=== PATIENT | male | born 1965 | race African-American/Black ===

== ENCOUNTER 2023-08-14 10:41 | Inpatient (IN) | payer BC, MEDICAID ==
[~2023-08-14] VITALS: Ht 154.9 cm; Wt 100.2 kg
[~2023-08-14 10:41] MED LIST: AMOX875T4 PO; IBUP-1455 PO
[2023-08-14 11:16] LABS: Basophils # (auto) 0 10 ^3/uL (0-0.2); Basophils % (auto) 0.9 % (0.0-2.0); Eosinophils # (auto) 0.1 10 ^3/uL (0-0.8); Eosinophils % (auto) 2.3 % (0.0-7.0); Hematocrit 45.3 % (41.0-53.0); Hemoglobin 15.4 g/dL (13.5-17.5); Lymphocytes # (auto) 1.4 10 ^3/uL (0.4-5.4); Lymphocytes % (auto) 27.3 % (10.0-50.0); Mean Corpuscular Hemoglobin 31.5 pg (28.0-32.0); Mean Corpuscular Volume 92.9 fL (80.0-100.0); Monocytes # (auto) 0.5 10 ^3/uL (0-1.3); Monocytes % (auto) 10.3 % (0.0-12.0); Neutrophils % (auto) 59.2 % (37.0-80.0); Nucleated Red Blood Cells % 0.1 %; Red Blood Cells 4.88 10^6/uL (4.5-5.90); Red Cell Distribution Width 13.7 % (11.8-14.3)
[2023-08-14 11:46] LABS: Alanine Aminotransferase 23 U/L (7-40); Albumin 4.2 g/dL (3.2-4.8); Alkaline Phosphatase 74 U/L (46-116); Anion Gap 3 (5-15); Aspartate Aminotransferase 15 U/L (13-40); BUN/Creatinine Ratio 18.4 (10.0-20.0); Bilirubin, Total 0.5 mg/dL (0.2-1.0); Blood Urea Nitrogen 21 mg/dL (9-23); Calcium 9.9 mg/dL (8.5-10.1); Carbon Dioxide 23 mmol/L (20-30); Chloride 116 mmol/L (98-107); Glucose 94 mg/dL (74-106); Potassium 4.3 mmol/L (3.5-5.1); Sodium 142 mmol/L (136-145)
[2023-08-14 11:47] LABS: Total Protein 6.7 g/dL (5.7-8.2)
[2023-08-14] MEDS: ASPirin 325 MG TAB PO ONE (13:20)
[2023-08-14] MEDS: NITROGLYCERIN 0.4 MG SL TAB SL ONE (13:21)
[2023-08-14] MEDS ORDERED: ALPR1TAB2 PO (16:10)
[2023-08-14] MEDS ORDERED: LISI20TA56 PO (16:10)
[2023-08-14] MEDS ORDERED: AMLO1TAB23 PO (16:10)
[2023-08-14] MEDS ORDERED: ONDANSETRON HCL 4 MG/2 ML VIAL IV PRN (16:15)
[2023-08-14] MEDS ORDERED: NITROGLYCERIN 0.4 MG SL TAB SL PRN (16:15)
[2023-08-14] MEDS ORDERED: HYDROcodone-ACET 5/325MG TAB PO PRN (16:15)
[2023-08-14] MEDS ORDERED: MORPHINE SULFATE INJ 2 MG/ml SYRG IV PRN ×2 (16:15)
[2023-08-14] MEDS ORDERED: ACETAMINOPHEN 325 MG TAB PO PRN (16:15)
[2023-08-14] MEDS ORDERED: DOCUSATE SOD 100 MG CAP PO PRN (16:15)
[2023-08-14] MEDS: ALPRAZolam 0.5 MG TAB PO PRN (22:16)
[2023-08-14] MEDS: ATORVASTATIN 20 MG TAB PO SCH (22:16)
[2023-08-14 22:30] VITALS: BP 129/77; PULSE 62; RESP 18; TEMP 98.4; O2SAT 97
[2023-08-14 23:30] VITALS: PULSE 62; RESP 18; O2SAT 97
[2023-08-14 23:31] VITALS: BP 129/77; PULSE 62; RESP 18; TEMP 98.4; O2SAT 97
[2023-08-15 01:00] VITALS: BP 115/66; PULSE 61; RESP 18; TEMP 98.4; O2SAT 97
[2023-08-15 05:00] VITALS: BP 123/69; PULSE 60; RESP 18; TEMP 98.4; O2SAT 96
[2023-08-15 05:55] LABS: Basophils # (auto) 0 10 ^3/uL (0-0.2); Basophils % (auto) 0.9 % (0.0-2.0); Eosinophils # (auto) 0.2 10 ^3/uL (0-0.8); Eosinophils % (auto) 4.7 % (0.0-7.0); Hematocrit 43.2 % (41.0-53.0); Hemoglobin 14.3 g/dL (13.5-17.5); Lymphocytes # (auto) 1.9 10 ^3/uL (0.4-5.4); Lymphocytes % (auto) 35.2 % (10.0-50.0); Mean Corpuscular Hemoglobin 30.9 pg (28.0-32.0); Mean Corpuscular Hgb Conc. 33.1 g/dL (32.0-36.0); Mean Corpuscular Volume 93.2 fL (80.0-100.0); Monocytes # (auto) 0.6 10 ^3/uL (0-1.3); Monocytes % (auto) 12.1 % (0.0-12.0); Neutrophils # (auto) 2.5 10 ^3/uL (1.6-8.6); Neutrophils % (auto) 47.1 % (37.0-80.0); Nucleated Red Blood Cells % 0.1 %; Red Blood Cells 4.63 10^6/uL (4.5-5.90); White Blood Cell 5.3 10^3/uL (4.4-10.8)
[2023-08-15 06:18] LABS: Alanine Aminotransferase 15 U/L (7-40); Alkaline Phosphatase 66 U/L (46-116); Anion Gap 4 (5-15); BUN/Creatinine Ratio 15.3 (10.0-20.0); Blood Urea Nitrogen 15 mg/dL (9-23); Calcium 9.2 mg/dL (8.5-10.1); Carbon Dioxide 24 mmol/L (20-30); Chloride 114 mmol/L (98-107); Glucose 102 mg/dL (74-106); LDL Cholesterol 123 mg/dL (< 100); Potassium 3.8 mmol/L (3.5-5.1); Sodium 142 mmol/L (136-145); Triglycerides 100 mg/dL (< 150)
[2023-08-15 06:19] LABS: Albumin 3.8 g/dL (3.2-4.8); Aspartate Aminotransferase 11 U/L (13-40); Cholesterol 169 mg/dL (< 200); HDL Cholesterol 31 mg/dL (40-59)
[2023-08-15 06:20] LABS: Bilirubin, Total 0.4 mg/dL (0.2-1.0); Total Protein 6.3 g/dL (5.7-8.2)
[2023-08-15 07:59] VITALS: BP 131/90; PULSE 69; RESP 18; TEMP 97.9; O2SAT 95
[2023-08-15 08:00] VITALS: PULSE 61; PULSE 69; RESP 18; O2SAT 95
[2023-08-15] MEDS: ASPirin-EC 81 mg tab PO SCH (10:02)
[2023-08-15] MEDS: amLODIPine BESYLATE 5 MG TAB PO SCH (10:02)
[2023-08-15] MEDS: LISINOPRIL 20 MG TAB PO SCH (10:02)
[2023-08-15] MEDS: PANTOPRAZOLE 40 MG TAB PO ONE (10:44)
[2023-08-15] MEDS: NICOTINE 21MG/24 HR TOPICAL PATCH TD ONE (11:28)
[2023-08-15 11:31] VITALS: BP 114/74; PULSE 73; RESP 17; TEMP 97.2; O2SAT 95
[2023-08-15 12:27] LABS: Erythrocyte Sedimentation Rate 2 mm/hr (0-20)
[2023-08-15] MEDS ORDERED: ASPI-543 PO (14:33)
[2023-08-15] MEDS ORDERED: ATOR20TA50 PO (14:33)
[2023-08-15] MEDS ORDERED: NIC21P TD (14:33)
[2023-08-15] MEDS ORDERED: PANT40T PO (14:33)
[2023-08-15 15:25] VITALS: BP 114/74; PULSE 73; RESP 18; TEMP 97.2; O2SAT 95
[2023-08-16] MEDS ORDERED: PANTOPRAZOLE 40 MG TAB PO SCH (06:00)
[2023-08-16] MEDS ORDERED: NICOTINE 21MG/24 HR TOPICAL PATCH TD SCH (10:00)
== END 2023-08-15 16:25 | disposition home or self-care (01) | DRG 313 ==
LOC: ER 10:41 → TELE 16:10 → TELE-E-ADS 21:30
PROVIDERS: ADMIT Internal Medicine Pulmonary Disease; ATTEND Emergency Medicine
DX: R07.89 Other chest pain (principal); Z68.41 Body mass index [BMI] 40.0-44.9, adult; K21.9 Gastro-esophageal reflux disease without esophagitis; E66.9 Obesity, unspecified; E78.5 Hyperlipidemia, unspecified; F17.210 Nicotine dependence, cigarettes, uncomplicated; F41.9 Anxiety disorder, unspecified; I10 Essential (primary) hypertension; Z79.1 Long term (current) use of non-steroidal anti-inflammatories (NSAID); Z79.899 Other long term (current) drug therapy; Z82.49 Family history of ischemic heart disease and other diseases of the circulatory system; Z71.6 Tobacco abuse counseling
CPT/HCPCS: 36415; 71045; 80053; 80061; 83036; 83735; 83880; 84443; 84484; 85025; 85652; 86141; 93005; 93306; 96374; G0378

== ENCOUNTER 2023-10-23 06:17 | Inpatient (IN) | payer BC ==
[~2023-10-23] VITALS: Ht 180.3 cm; Wt 89.8 kg
[~2023-10-23 06:17] MED LIST changes: +ALPR1TAB2 PO; +AMLO1TAB23 PO; -AMOX875T4 PO; +ASPI-543 PO; +ATOR20TA50 PO; -IBUP-1455 PO; +LISI20TA56 PO; +NIC21P TD; +PANT40T PO
[2023-10-23 06:50] VITALS: PULSE 67; RESP 15; O2SAT 95
[2023-10-23] MEDS: ONDANSETRON HCL 4 MG/2 ML VIAL IV ONE (06:52)
[2023-10-23] MEDS: HYDROmorphone HCL 2 MG/ML VL/or syr IV ONE ×2 (06:52→08:07)
[2023-10-23] MEDS: PANTOPRAZOLE 40 MG/10 ML VIAL INJ IV ONE (06:52)
[2023-10-23] MEDS: SODIUM CHLORIDE 0.9% 1,000 ML IVB ONE (06:53)
[2023-10-23 07:20] LABS: Basophils # (auto) 0 10 ^3/uL (0-0.2); Basophils % (auto) 0.7 % (0.0-2.0); Eosinophils # (auto) 0.1 10 ^3/uL (0-0.8); Eosinophils % (auto) 1.7 % (0.0-7.0); Hematocrit 43.2 % (41.0-53.0); Hemoglobin 14.8 g/dL (13.5-17.5); Lymphocytes # (auto) 1.1 10 ^3/uL (0.4-5.4); Lymphocytes % (auto) 17.6 % (10.0-50.0); Mean Corpuscular Hemoglobin 31.6 pg (28.0-32.0); Mean Corpuscular Hgb Conc. 34.3 g/dL (32.0-36.0); Monocytes # (auto) 0.8 10 ^3/uL (0-1.3); Monocytes % (auto) 13.1 % (0.0-12.0); Neutrophils # (auto) 4.3 10 ^3/uL (1.6-8.6); Neutrophils % (auto) 66.9 % (37.0-80.0); Nucleated Red Blood Cells % 0.1 %; Platelet Count (auto) 215 10^3/uL (140-450); Red Cell Distribution Width 13.8 % (11.8-14.3); White Blood Cell 6.4 10^3/uL (4.4-10.8)
[2023-10-23 07:33] LABS: Alanine Aminotransferase 63 U/L (7-40); Albumin 4.3 g/dL (3.2-4.8); Alkaline Phosphatase 83 U/L (46-116); Anion Gap 6 (5-15); Aspartate Aminotransferase 103 U/L (13-40); BUN/Creatinine Ratio 16.1 (10.0-20.0); Blood Urea Nitrogen 18 mg/dL (9-23); Carbon Dioxide 28 mmol/L (20-30); Chloride 112 mmol/L (98-107); Glucose 116 mg/dL (74-106); Lipase 67 U/L (12-53); Potassium 3.5 mmol/L (3.5-5.1); Sodium 146 mmol/L (136-145)
[2023-10-23 07:34] LABS: Bilirubin, Total 0.8 mg/dL (0.2-1.0); Total Protein 6.9 g/dL (5.7-8.2)
[2023-10-23 07:40] VITALS: PULSE 69; RESP 14; O2SAT 94
[2023-10-23] MEDS ORDERED: DOCUSATE SOD 100 MG CAP PO PRN (14:30)
[2023-10-23] MEDS ORDERED: hydrALAZINE HCL 20 MG/ML VL IV PRN (14:30)
[2023-10-23] MEDS ORDERED: IBUPROFEN 600 MG TAB PO PRN (14:30)
[2023-10-23] MEDS ORDERED: ONDANSETRON HCL 4 MG/2 ML VIAL IV PRN (14:30)
[2023-10-23] MEDS ORDERED: NITROGLYCERIN 0.4 MG SL TAB SL PRN (15:15)
[2023-10-23] MEDS ORDERED: MORPHINE SULFATE INJ 2 MG/ml SYRG IV PRN (15:15)
[2023-10-23 16:21] LABS: Urine Bacteria None Seen /hpf (None Seen)
[2023-10-23 16:29] LABS: Urine Blood Negative /uL (Negative); Urine Clarity Clear (Clear); Urine Color Light-Yellow (Yellow); Urine Mucus FEW (None Seen); Urine Protein, UAD Negative (Negative); Urine Specific Gravity 1.022 (1.001-1.035); Urine Urobilinogen Normal (Negative); Urine WBC <1 /hpf (0 - 3); Urine pH 6.5 (5.0-9.0)
[2023-10-23 16:51] LABS: Amphetamine Screen, Urine Neg (NEGATIVE); Barbiturate Scree,Urine Neg (NEGATIVE); Benzodiazephine Screen, Urine Neg (NEGATIVE); Cocaine Screen, Urine Neg (NEGATIVE); Opiate Scree,Urine Neg (NEGATIVE)
[2023-10-23 16:52] LABS: Cannabinoid Screen, Urine Neg (NEGATIVE); Phencyclidine Screen, Urine Neg (NEGATIVE)
[2023-10-23] MEDS: LACTATED RINGER'S 1,000 ML IV SCH (16:56)
[2023-10-23] MEDS: SODIUM CHLOR 0.9% PF (SALINE LOCK) 10ML VIAL/SYR IV SCH (22:11)
[2023-10-23] MEDS: ATORVASTATIN 20 MG TAB PO SCH (22:11)
[2023-10-23 22:24] VITALS: BP 136/81; PULSE 64; RESP 20; TEMP 97.5; O2SAT 97
[2023-10-23] MEDS: MORPHINE SULFATE INJ 2 MG/ml SYRG IV PRN (22:36)
[2023-10-24 01:00] VITALS: BP 123/71; PULSE 66; RESP 16; TEMP 98; O2SAT 95
[2023-10-24] MEDS: HYDROcodone-ACET 5/325MG TAB PO PRN (03:45)
[2023-10-24 05:00] VITALS: BP 123/78; PULSE 60; RESP 20; TEMP 97.6; O2SAT 95
[2023-10-24 06:21] LABS: Basophils # (auto) 0 10 ^3/uL (0-0.2); Basophils % (auto) 0.7 % (0.0-2.0); Eosinophils # (auto) 0.2 10 ^3/uL (0-0.8); Eosinophils % (auto) 2.9 % (0.0-7.0); Hematocrit 41.1 % (41.0-53.0); Hemoglobin 14.1 g/dL (13.5-17.5); Lymphocytes # (auto) 1.8 10 ^3/uL (0.4-5.4); Lymphocytes % (auto) 28.1 % (10.0-50.0); Mean Corpuscular Hemoglobin 31.5 pg (28.0-32.0); Mean Corpuscular Hgb Conc. 34.2 g/dL (32.0-36.0); Mean Corpuscular Volume 92.1 fL (80.0-100.0); Monocytes # (auto) 0.7 10 ^3/uL (0-1.3); Monocytes % (auto) 11.1 % (0.0-12.0); Neutrophils # (auto) 3.7 10 ^3/uL (1.6-8.6); Neutrophils % (auto) 57.2 % (37.0-80.0); Nucleated Red Blood Cells % 0.1 %; Platelet Count (auto) 190 10^3/uL (140-450); Red Blood Cells 4.47 10^6/uL (4.5-5.90); White Blood Cell 6.5 10^3/uL (4.4-10.8)
[2023-10-24 06:32] LABS: Alanine Aminotransferase 49 U/L (7-40); Albumin 3.7 g/dL (3.2-4.8); Alkaline Phosphatase 76 U/L (46-116); Anion Gap 4 (5-15); Aspartate Aminotransferase 31 U/L (13-40); BUN/Creatinine Ratio 14.3 (10.0-20.0); Blood Urea Nitrogen 15 mg/dL (9-23); Calcium 8.5 mg/dL (8.7-10.4); Carbon Dioxide 26 mmol/L (20-30); Chloride 112 mmol/L (98-107); Glucose 105 mg/dL (74-106); Potassium 3.9 mmol/L (3.5-5.1); Sodium 142 mmol/L (136-145)
[2023-10-24 06:33] LABS: Bilirubin, Total 0.4 mg/dL (0.2-1.0); Total Protein 6.1 g/dL (5.7-8.2)
[2023-10-24 08:52] VITALS: BP 140/85; PULSE 56; RESP 16; TEMP 98; O2SAT 96
[2023-10-24] MEDS: PANTOPRAZOLE 40 MG/10 ML VIAL INJ IV SCH (09:45)
[2023-10-24] MEDS: ASPirin 81 mg TAB PO SCH (09:45)
[2023-10-24 14:26] VITALS: BP 133/84; PULSE 75; RESP 16; TEMP 98.6; O2SAT 98
[2023-10-24 16:34] VITALS: BP 135/85; PULSE 78; RESP 16; TEMP 98.5; O2SAT 98
[2023-10-24] MEDS ORDERED: PANT40T PO (17:45)
== END 2023-10-24 18:45 | disposition home or self-care (01) | DRG 392 ==
LOC: EDUNIT# 06:17 → EDBD 06:17 → ER 06:28 → OVERFLOW 15:04 → EAST 22:20
PROVIDERS: ADMIT Internal Medicine Pulmonary Disease; ATTEND Internal Medicine Pulmonary Disease
DX: R10.31 Right lower quadrant pain (principal); J98.11 Atelectasis; E87.0 Hyperosmolality and hypernatremia; E86.0 Dehydration; I10 Essential (primary) hypertension; E78.5 Hyperlipidemia, unspecified; F17.210 Nicotine dependence, cigarettes, uncomplicated; R73.9 Hyperglycemia, unspecified
CPT/HCPCS: 36415; 74176; 76705; 80053; 80307; 81001; 83690; 84484; 85025; 93005; 96374; 96375; G0378; J2405; J2470